=== PATIENT | female | born 1985 | race Caucasian/White ===

== ENCOUNTER → 2016-10-03 | Outpatient (CLI) | payer OTHER ==
[2016-10-03 08:29] LABS: BASOPHIL % 0.2 % (0-2); PLATELET COUNT 144 x10^3mcL (130-400)
[2016-10-03 08:30] LABS: RED CELL DISTRIBUTION WIDTH 15.1 % (11.5-14.5)
[2016-10-03 08:34] LABS: GLUCOSE FASTING 93 mg/dL (70-110)
== END | disposition home or self-care (01) ==
LOC: LB 08:09
DX: Z34.90 Encounter for supervision of normal pregnancy, unspecified, unspecified trimester (principal)